=== PATIENT | female | born 1935 | race Caucasian/White ===

== ENCOUNTER → 2021-01-07 17:17 | Outpatient (BNVA) | payer MEDICARE, SELFPAY | PROVIDERS: PCP Urology; Visit Provider Registered Nurse Neonatal Intensive Care | DX: N39.0 Urinary tract infection, site not specified (principal) | CPT/HCPCS: 81000; 87086 ==

== ENCOUNTER 2023-03-14 08:58 | Emergency (ER) | payer MEDICARE, SELFPAY ==
[2023-03-14 09:00] VITALS: BP 185/112; PULSE 68; RESP 16; TEMP 36.5; O2SAT 93; BMI 25.7
--- NOTE | 2023-03-14 09:05 | XR_ITS ---
WS: [id number] Exam: XR chest 1V portable [id number] Date/Time of Exam: 03/14/2023 9:24 AM Reason For Exam: sob Comparison 01/31/2016. There appears to be atelectasis and infiltrate in the LEFT base and LEFT basal pleural effusion. Daisha ining lung estrella are clear. No pneumothorax. Heart size is normal. The mediastinum is not widened. T here is S-shaped scoliosis of the thoracic spine. A permanent cardiac pacer superimposes the LEFT brent st. Bony structures are otherwise intact. Probable hiatal hernia. IMPRESSION: 1. Infiltrate and atelectasis in the LEFT lung base and probable LEFT basal pleural effusion. There i s also probably a hiatal hernia present. Similar findings were noted on the prior exam. Some changes in the LEFT base may be chronic in nature. 2. Thoracolumbar scoliosis.
--- NOTE | 2023-03-14 09:06 | ECG_ITS ---
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 Measurements Intervals Sharon Rate: 64 P: 79 FL: 232 QRS: 68 QRSD: 98 T: -51 QT: 422 QTc: 438 Interpretive Statements SINUS RHYTHM WITH FIRST DEGREE AV BLOCK ST DEVIATION AND MODERATE T-WAVE ABNORMALITY, CONSIDER ANTEROLATERAL ISCHEMIA [-0.1+ mV T-WAVE IN V3-V6] ST DEVIATION AND MODERATE T-WAVE ABNORMALITY, CONSIDER INFERIOR ISCHEMIA [-0.1+ mV T-WAVE IN II/aVF] Compared to ECG 01/31/2016 09:18:55 First degree AV block now present Possible ischemia now present Sinus tachycardia no longer present Ventricular premature complex(es) no longer present T-wave abnormality still present Electronically Signed On 03-14-2023 12:17:46 RISK CONTROL REPRESENTATIVE by Aman Ribera M.D. [id number]
--- NOTE | 2023-03-14 09:07 | ED_ITS ---
HPI - SOB/Dyspnea 2 General: Chief Complaint: Shortness of Breath/Dyspnea Stated Complaint: sob Time Seen by Provider: 03/14/23 08:59 Source: patient and EMS Mode of arrival: EMS Limitations: no limitations History of Present Illness: HPI Narrative: Patient is a nice 87-year-old female with a history of hypertension, pacemaker, and elevated cholesterol here via EMS for complaints of shortness of breath. Patient tells me approximately a week ago she tripped and fell backwards and struck her head. Questionable LOC at that time. Patient states since the fall she feels like she has been short of breath. Patient denies striking her chest/ribs on anything. Patient states she has not had URI symptoms like a cough, congestion, runny nose, body aches, or fevers. Patient is not having any chest pain. Denies palpitations. Denies lower extremity swelling or weight gain. MD elicited complaint: shortness of breath Onset (ago): week(s) Timing: constant Severity: mild Exacerbating factors: nothing Relieving factors: nothing Associated symptoms: Deny abdominal pain, chest congestion, chest pain, dizziness, extremity pain, fever(s), hemoptysis, lightheadedness, nausea, orthopnea, palpitations, syncope or vomiting Treatment prior to arrival: none Related Data: Home oxygen amount: none Review of Systems 2 Const: Denies: fever(s), chills, body aches, fatigue or malaise Eyes: Denies: change in vision or blurry vision Card: Denies: chest pain, palpitations, irregular heart rhythm, edema, swelling of feet/ankles, lightheadedness, syncope, pre-syncope, dyspnea on exertion, orthopnea, leg pain with exertion or acrocyanosis Resp: Reports: dyspnea; Denies: productive cough, non-productive cough, wheezing, stridor, pain on inspiration, change in phlegm color, hemoptysis or chest congestion GI: Denies: abdominal pain, nausea, vomiting, heartburn or diarrhea : Denies: dysuria Musc: Denies: neck pain, back pain, extremity pain, extremity swelling or joint pain Skin/Breast: Denies: rash Neuro: Denies: headache(s), numbness in extremities, weakness in extremities, sensory changes or dizziness PFSH ED 2 PFSH: Social History Smoking and tobacco/nicotine status: never used tobacco/nicotine Physical Exam 2 Const: COMMON NORMALS: no acute distress, average body habitus, patient oriented x3, no limitations, healthy appearing, alert and well nourished G ENERAL APPEARANCE: cooperative ORIENTATION/CONSCIOUSNESS: Yes awake, Yes oriented to person, Yes oriented to place and Yes oriented to time HENMT: COMMON NORMALS: normocephalic and atraumatic HEAD & SCALP: normal to inspection, normocephalic and atraumatic FACE & SINUS: normal facial exam Eye: GENERAL EYE: appearance normal, both eyes and all related structures Neck/C-Spine: COMMON NORMALS: no JVD and No carotid bruits GENERAL: Yes normal visual inspection, No anterior neck swelling and No submandibular swelling Chest: COMMONS NORMALS: normal inspection of the chest and normal palpation of entire chest wall Resp: COMMON NORMALS: normal respiratory effort AUSCULTATION: crackles (LLL) Cardio: COMMON NORMALS: no JVD, regular rate and regular rhythm RATE: r egular rate RHYTHM: regular rhythm GI: COMMON NORMALS: Normal to inspection, nondistended, normoactive bowel sounds present, Soft to palpation and non-tender PALPATION: Yes Soft to palpation Back/Pelvis: COMMON NORMALS: thoracic and lumbar spine normal to inspection Extremity: COMMON NORMALS: full ROM, capillary refill normal and no calf tenderness NARRATIVE EXTREMITY EXAM: mild bilateral symmetrical edema GENERAL: Yes normal exam except as noted Neuro: MARY ANN COMA SCALE: document GCS findings [place] coma scale eye opening: Spontaneous [place] coma scale verbal response: Orientated Mary Ann coma scale motor response: Obey commands [place] coma scale total score: 15 COMMON NORMALS: patient oriented x3, moves all extremities, no focal motor deficits and no sensory deficits noted SENSORIUM/ORIENTATION: Yes alert, Yes oriented to person, Yes oriented to place and Yes oriented to time Skin: COMMON NORMALS: no rashes or lesions noted GENERAL SKIN EXAM: no rashes or lesions noted Course 2 Vital Signs: Vital signs: Vital Signs Temperature 97.7 F 03/14/23 09:00 Pulse Rate 62 03/14/23 11:00 Respiratory Rate 16 03/14/23 09:00 Blood Pressure 176/104 03/14/23 11:00 Pulse Oximetry 94 03/14/23 11:00 Oxygen Delivery Me thod Room Air 03/14/23 11:00 MDM - SOB/Dyspnea Medical Decision Making Patient is an 87-year-old female here for complaints of shortness of breath over the past week or so. Has never had any chest pain with this. No syncope/lightheadedness. She arrives with stable vital signs apart from hypertension. She admittedly did not take her blood pressure medications this morning. Blood work overall is unremarkable. Cardiac workup initiated. EKGs showing t-wave inversions in II, III, avF, and V3-V6 with no comparisons. She has a baseline troponin of 13 with a negative delta. She has no complaints of chest pain. BNP is elevated at roughly 2900 with no recent comparisons-back in 2016 it was roughly 1200. She clinically does not appear fluid overloaded. No known history of CHF. CXR showing a right lower lobe pneumonia. At this time we will treat patient's pneumonia and have her follow-up with her guidance and control system engineer. Strict return to ED precautions given Lab Data 03/14/23 08:46 03/14/23 08:46 Labs/Radiology: Laboratory Results WBC 11.88 10^3/uL (3.29-11.43) H 03/14/23 08:46 RBC 4.67 10^6/uL (3.85-5.65) 03/14/23 08:46 Hgb 13.60 g/dL (11.27-16.99) 03/14/23 08:46 Hct 40.9 % (36-47) 03/14/23 08:46 MCV 87.6 fl (85-98) 03/14/23 08:46 MCH 29.1 pg (27-33) 03/14/23 08:46 MCHC 33.3 g/dL (30-55) 03/14/23 08:46 RDW 14.3 % (12.1-15.1) 03/14/23 08:46 Plt Count 263 10^3/cmm (157-399) 03/14/23 08:46 MPV 10.0 fL (7.4-10.4) 03/14/23 08:46 Neut % (Auto) 78.8 % 03/14/23 08:46 Lymph % (Auto) 10.0 % 03/14/23 08:46 Haines % (Auto) 8.1 % 03/14/23 08:46 Eos % (Auto) 1.7 % 03/14/23 08:46 Baso % (Auto) 0.8 % 03/14/23 08:46 Neut # (Auto) 9.36 10^3/uL (1.8-7.7) H 03/14/23 08:46 Lymph # (Auto) 1.2 10^3/uL (0.8-4.8) 03/14/23 08:46 Haines # (Auto) 1.0 10^3/uL (0.2-0.9) H 03/14/23 08:46 Eos # (Auto) 0.2 10^3/uL (0.0-0.8) 03/14/23 08:46 Baso # (Auto) 0.1 10^3/uL (0.0-0.1) 03/14/23 08:46 Nucleated RBC % (auto) 0 % 03/14/23 08:46 Nucleated RBCs # 0.0 /100WBC 03/14/23 08:46 Sodium 139 mmol/L (136-145) 03/14/23 08:46 Potassium 3.5 mmol/L (3.5-5.1) 03/14/23 08:46 Chloride 102 mmol/L (98-107) 03/14/23 08:46 Carbon Dioxide 24 mmol/L (22-29) 03/14/23 08:46 Anion Gap 16.5 (5-19) 03/14/23 08:46 BUN 18 mg/dL (8-23) 03/14/23 08:46 Creatinine 1.1 mg/dL (0.5-0.9) H 03/14/23 08:46 GFR Calculation Not Reportable 03/14/23 08:46 Glucose 105 mg/dL (65-115) 03/14/23 08:46 Calculated Osmolality 290 mOsm/kg (285-295) 03/14/23 08:46 Calcium 9.7 mg/dL (8.5-10.5) 03/14/23 08:46 Total Bilirubin 0.7 mg/dL (0.15-1.2) 03/14/23 08:46 AST 18 U/L (0-32) 03/14/23 08:46 ALT 9 U/L (0-33) 03/14/23 08:46 Alkaline Phosphatase 87 U/L (35-105) 03/14/23 08:46 Troponin T Baseline 13 ng/L (0-10) H 03/14/23 08:46 Troponin T 120 Minute 12.60 ng/L (0-10) H 03/14/23 10:33 Delta Troponin T -0.40 ABS# (0-10) L 03/14/23 10:33 NT-Pro-B Natriuret Pep 2919 pg/mL (0-450) H 03/14/23 08:46 Total Protein 7.3 g/dL (6.6-8.7) 03/14/23 08:46 Albumin 3.6 g/dL (3.5-5.2) 03/14/23 08:46 Globulin 3.7 g/dL (1.3-4.6) 03/14/23 08:46 Coronavirus 229E (PCR) Not detected (NOT DETECT) 03/14/23 09:15 SARS-CoV-2 (PCR) Not detected (NOT DETECT) 03/14/23 09:15 All radiology interpretation(s) finalized by discharge Discharge Plan Discharge Patient Disposition: Home Clinical Impression: Left lower lobe pneumonia Qualifiers: Pneumonia type: due to unspecified organism Qualified Code(s): J18.9 - Pneumonia, unspecified organism Condition: Stable Prescriptions: New levofloxacin 500 mg tablet 500 mg PO DAILY 7 Days Qty: 7 0RF No Action amlodipine 10 mg tablet 10 mg PO DAILY acetaminophen 500 mg Tablet 500 mg PO Q6H PRN (Reason: Pain) Fiber-Tabs 625 mg Tablet 1,250 mg PO DAILY metoprolol tartrate 50 mg tablet 50 mg PO TID Discharge Orders: Discharge ED (Routine); Ordered 03/14/23 Ordered By: Annabelle Massey Referrals: Ronaldo Jolley MD [Primary Care Provider] - Activity Restrictions/Additional Instructions: As we discussed I want you to fill your antibiotics and start them today. You need to return to the emergency department for worsening shortness of breath, fevers, difficulty breathing, chest pain, or any other concerns you may have. As we discussed I want you to follow-up with your primary care provider. As we also discussed I want you to follow-up with your guidance and control system engineer in the next 1 to 2 weeks for further evaluation. There were some nonspecific EKG changes today but unknown whether these are new as we do not have any previous on file. We also discussed your BNP being elevated today at roughly 2900. Again we have no previous lab values. Your guidance and control system engineer should have comparisons for these. Coding Level of Care Code ED Foreign Banknote Teller Trader for Yaron Cameron
[2023-03-14] MEDS: metoprolol tartrate 1 mg/1 mL SDV 5 mL 2.5 MG IVP ×2 (09:15→10:50)
[2023-03-14] MEDS: amlodipine 10 mg Tablet PO (09:15)
[2023-03-14] MEDS: metoprolol tartrate 25 mg Tablet PO ×2 (09:15→10:50)
[2023-03-14 09:23] LABS: Basophils # 0.1 10^3/uL (0.0-0.1); Basophils % 0.8 %; Eosinophils # 0.2 10^3/uL (0.0-0.8); Eosinophils % 1.7 %; Hematocrit 40.9 % (36-47); Lymphocytes # 1.2 10^3/uL (0.8-4.8); Mean Corpuscular HGB Conc 33.3 g/dL (30-55); Mean Corpuscular Hemoglobin 29.1 pg (27-33); Mean Corpuscular Volume 87.6 fl (85-98); Monocytes % 8.1 %; Neutrophils # 9.36 10^3/uL (1.8-7.7); Neutrophils % 78.8 %; Nucleated Red Blood Cells % 0 %; Platelet Count 263 10^3/cmm (157-399); Red Blood Count 4.67 10^6/uL (3.85-5.65); Red Cell Distribution Width 14.3 % (12.1-15.1); White Blood Count 11.88 10^3/uL (3.29-11.43)
--- NOTE | 2023-03-14 09:33 | CT_ITS ---
WS: [id number] CT HEAD NONCONTRAST HISTORY: fall TECHNIQUE: Contiguous axial imaging performed through the brain in 2.5 mm imaging. Bone and soft tiss ue windows. Sagittal and coronal reformats reviewed. All CT scans at [facility] use at least one of these dose optimization techniques: automated exposure control; mA and/or kV adjustment per pa tient size (includes targeted exams where dose is matched to clinical indication); or iterative recon struction. DLP: 981.29 mGy.cm COMPARISON: None available. No acute intracranial hemorrhage, midline shift or mass effect. Moderate atrophy and severe small vessel ischemic disease is confluent throughout the white matter. N o infarct. Ventricles: Mild prominence of the ventricles. No inferior displacement of the cerebellar tonsils. Paranasal sinuses: As visualized are clear. Mastoid air cells: Well pneumatized. Calvarium and scalp: Skull is intact with no soft tissue edema or swelling. Extensive calcifications through the distal vertebral arteries and also through the cavernous carotid arteries. IMPRESSION: 1. No acute intracranial hemorrhage or edema. 2. Moderate atrophy with severe small vessel ischemic disease.
[2023-03-14 09:46] LABS: Troponin(5th) Baseline 13 ng/L (0-10)
[2023-03-14 09:55] LABS: Alanine Aminotransferase 9 U/L (0-33); Albumin Level 3.6 g/dL (3.5-5.2); Alkaline Phosphatase 87 U/L (35-105); Anion Gap 16.5 (5-19); Aspartate Amino Transferase 18 U/L (0-32); Blood Urea Nitrogen 18 mg/dL (8-23); Calcium 9.7 mg/dL (8.5-10.5); Carbon Dioxide 24 mmol/L (22-29); Chloride 102 mmol/L (98-107); Globulin 3.7 g/dL (1.3-4.6); Glucose 105 mg/dL (65-115); NT Pro B Type Natriuretic Pept 2919 pg/mL (0-450); Osmolality Calculated 290 mOsm/kg (285-295); Potassium 3.5 mmol/L (3.5-5.1); Sodium 139 mmol/L (136-145); Total Bilirubin 0.7 mg/dL (0.15-1.2); Total Protein 7.3 g/dL (6.6-8.7)
[2023-03-14 10:37] VITALS: BP 162/95; PULSE 67; O2SAT 90
[2023-03-14 11:00] VITALS: BP 176/104; PULSE 62; O2SAT 94
--- NOTE | 2023-03-14 11:06 | ECG_ITS ---
[facility] Test Date: 2023-03-14 Pat Name: Castro Cardozo Department: Room: Gender: Female Belt Splicer: : 1935 Requested By: Annabelle Massey Order Number: [id number] Lemuel MD: Aman Ribera M.D. Measurements Intervals [place] Rate: 62 P: 82 WI: 225 QRS: 68 QRSD: 105 T: -65 QT: 449 QTc: 456 Interpretive Statements SINUS RHYTHM WITH FIRST DEGREE AV BLOCK SEPTAL MYOCARDIAL INFARCTION , PROBABLY OLD [40+ ms Q WAVE IN V1/V2] MODERATE T-WAVE ABNORMALITY, CONSIDER ANTEROLATERAL ISCHEMIA [-0.1+ mV T-WAVE IN V3-V6] MODERATE T-WAVE ABNORMALITY, CONSIDER INFERIOR ISCHEMIA [-0.1+ mV T-WAVE IN II/aVF] Compared to ECG 03/14/2023 09:11:43 Myocardial infarct finding now present T-wave abnormality still present Possible ischemia still present Electronically Signed On 03-14-2023 12:21:22 FORGING PRESS SETTER UP by Aman Ribera M.D. [id number]
[2023-03-14 11:08] LABS: Adenovirus Not Detected (NOT DETECT); Chlamydia Pneumoniae Not Detected (NOT DETECT); Coronavirus 229E,HKU1,NL63,OC4 Not Detected (NOT DETECT); Human Metapneumovirus Not Detected (NOT DETECT); Human Rhinovirus/Enterovirus Not Detected (NOT DETECT); Influenza A Not Detected (NOT DETECT); Influenza A H1 Not Detected (NOT DETECT); Influenza A H1-2009 Not Detected (NOT DETECT); Influenza A H3 Not Detected (NOT DETECT); Influenza B Not Detected (NOT DETECT); Mycoplasma Pneumoniae Not Detected (NOT DETECT); Parainfluenza Virus Type 1 Not Detected (NOT DETECT); Parainfluenza Virus Type 2 Not Detected (NOT DETECT); Parainfluenza Virus Type 3 Not Detected (NOT DETECT); Parainfluenza Virus Type 4 Not Detected (NOT DETECT); Respiratory Syncytial Virus A Not Detected (NOT DETECT); Respiratory Syncytial Virus B Not Detected (NOT DETECT); SARS-COV-2 Not Detected (NOT DETECT)
[2023-03-14 12:11] VITALS: PULSE 61; O2SAT 92
== END 2023-03-14 12:12 | disposition home or self-care (01) ==
PROVIDERS: Emergency Provider Physician Assistant; PCP Urology
DX: J18.9 Pneumonia, unspecified organism (principal); Z11.52 Encounter for screening for COVID-19
CPT/HCPCS: 36415; 70450; 71045; 80053; 83880; 84484; 85025; 87635; 93005; 96374; 96376; 99285; J3490